=== PATIENT | male | born 1965 | race African-American/Black ===

== ENCOUNTER 2018-06-24 18:56 | Inpatient (IN) | payer SELFPAY ==
[~2018-06-24 18:56] MED LIST: Aminocaproic Acid 5 GM/20 ML VIAL ONE; Calcium Chloride 1 GM/10 ML Abboject SYRINGE ONE; Cardioplegic Soln 1,000 ML BAG ONE; Dextrose 50% Abboject 50 ML SYRINGE ONE; Heparin 30,000 units/30 ml VIAL ONE; Heparin 5,000 UNITS/ML VIAL ONE; Lidocaine 2% PF 100 mg/5 ml Syringe ONE; Magnesium 5 GM/10 ML VIAL ONE; Mannitol 12.5 GM/50 ML ONE; Nitroglycerin 50 MG/250 ML BOT ONE; Norepinephrine 4 MG/4 ML VIAL ONE; PHENYLEPHRINE-NS 100 MCG/ML 10 ML SYRINGE ONE; PROPOFOL 200 MG/20 ML VIAL ONE; Papaverine 60 MG/2 ML VIAL ONE; Potassium Chloride 60 MEQ/30 ML VIAL ONE; Protamine Sulfate 250 MG/25 ML VIAL ONE; Sodium Bicarb 50 MEQ/50 ML VIAL ONE; Succinylcholine Chloride 20 MG/ML 10 ml SYRINGE FS ONE; Thrombin 5000 UNITS/5 ML VIAL ONE; Vecuronium 10 MG VIAL ONE
[2018-06-24 19:33] LABS: INR-International Normal Ratio 1.1; PTT 37.2 SEC (22.9-36.1); Prothrombin Time 13.9 SEC (12.0-14.7)
[2018-06-24 19:49] LABS: Troponin I 12.715 ng/mL (< 0.028)
[2018-06-24] MEDS ORDERED: Lidocaine 1% (PF) 30 ML VIAL ONE (19:52)
[2018-06-24] MEDS ORDERED: Milrinone 10 MG/10 ML VIAL ONE (21:11)
[2018-06-24] MEDS ORDERED: Dexmedetomidine 200 MCG/2 ML VIAL ONE (21:13)
--- NOTE | 2018-06-24 21:14 | RAD ---
AP VIEW CHEST 06/24/18 HISTORY: Chest pain. AP view chest demonstrates EKG leads seen over the chest. Surgical screw is seen in the proximal aspe ct of the left humerus. No evidence of acute intrathoracic abnormality seen. No evidence of effusions, pneumonia or pneumotho rax seen. IMPRESSION: Unremarkable AP view chest. POS: [facility]
[2018-06-24] MEDS ORDERED: Heparin 10,000 UNITS/1 ML VIAL ONE (21:19)
[2018-06-24] MEDS ORDERED: Vecuronium 10 MG VIAL ONE ×2 (21:27→23:51)
[2018-06-24] MEDS ORDERED: Insulin Regular 300 UNITS/3 ML VIAL ONE (21:27)
[2018-06-24] MEDS ORDERED: Morphine 4 MG/ML VIAL ONE (21:32)
[2018-06-24] MEDS ORDERED: Midazolam HCl 5 mg/5 ml Vial ONE (21:39)
[2018-06-24] MEDS ORDERED: Phenylephrine HCL 10 MG/ML VIAL ONE (22:43)
[2018-06-24] MEDS ORDERED: PHENYLEPHRINE-NS 100 MCG/ML 10 ML SYRINGE ONE (22:44)
[2018-06-25] MEDS ORDERED: Midazolam HCl 5 mg/5 ml Vial ONE (00:36)
[2018-06-25] MEDS ORDERED: Fentanyl 100 MCG/2 ML VIAL SLOW IVP PRN (01:57)
[2018-06-25] MEDS ORDERED: Bisacodyl 10 MG SUPP PR PRN (01:57)
[2018-06-25] MEDS ORDERED: Guaifenesin DM 100-10/5 ML UDCUP PO PRN (01:57)
[2018-06-25] MEDS ORDERED: Hetastarch 6% 500 ML 500 ML IVPB PRN (01:57)
[2018-06-25] MEDS ORDERED: Bisacodyl 5 MG TAB PO PRN (01:57)
[2018-06-25] MEDS ORDERED: Magnesium 2 GM/NS 0.9% 100 ML 2 GM in Premix Bag 1 BAG IVPB SCH ×2 (01:57→09:00)
[2018-06-25] MEDS ORDERED: Mag-Al 1200 mg/1200 mg/30 ML UDCUP PO PRN (01:57)
[2018-06-25] MEDS ORDERED: HYDROcodone/Acetaminophen 5/325 mg Tablet PO PRN (01:57)
[2018-06-25] MEDS ORDERED: Promethazine HCl 25 MG/ML VIAL IM PRN (01:57)
[2018-06-25] MEDS ORDERED: hydrALAZINE 20 MG/ML VIAL SLOW IVP PRN (01:57)
[2018-06-25] MEDS ORDERED: Potassium Chloride 20 MEQ/100 ML PREMIX BAG IVPB PRN (01:57)
[2018-06-25] MEDS ORDERED: Norepinephrine 8 MG/0.9% NS 250 ML IVPB PRN (01:57)
[2018-06-25] MEDS ORDERED: Acetaminophen 325 MG TAB PO PRN (01:57)
[2018-06-25] MEDS ORDERED: Ondansetron PF 4 MG/2 ML Vial IVP PRN (01:57)
[2018-06-25] MEDS ORDERED: CEFAZOLIN/Water 2 GM/20 ML SYRINGE SLOW IVP SCH (01:57)
[2018-06-25] MEDS ORDERED: Post-Op Insulin Drip Protocol IVPB ONE (01:57)
[2018-06-25] MEDS ORDERED: Nitroglycerin 50 MG/250 ML BOT 250 ML IVPB PRN (01:57)
[2018-06-25] MEDS ORDERED: D5 1/2 NS w/20 mEq KCL 1,000 ML IV SCH (02:15)
[2018-06-25] MEDS ORDERED: Magnesium 2 GM/50 ML 2 GM in Premix Bag 1 BAG IVPB SCH (02:15)
[2018-06-25 02:25] LABS: ALV-art Gradient 246.025 (0-20); Actual Bicarbonate (HCO3a) 25.6 mEq/L (22-28); CO2 Tension 50.3 mmHg (35.0-45.0); Calcium, Ionized 1.11 mmol/L (1.12-1.30); Carboxyhemoglobin (COHb) 2.4 gm% (0.0-3.0); Hemoglobin (Hb) 12.7 g/dL (14.0-18.0); O2 Tension (PaO2) 118.9 mmHg (80.0-100.0); Potassium - ABG Lab 4.12 mmol/L (3.70-5.30); Puncture Site ALINE; pH, Arterial 7.32 (7.35-7.45)
[2018-06-25] MEDS ORDERED: Insulin Regular 300 UNITS/3 ML VIAL ONE (02:26)
[2018-06-25] MEDS ORDERED: Milrinone 20 MG in Sodium Chloride 0.9% 100 ML IVPB SCH (02:30)
[2018-06-25] MEDS ORDERED: Dextrose 50% Abboject 50 ML SYRINGE SLOW IVP PRN (02:32)
[2018-06-25] MEDS ORDERED: Dextrose 5% in Water 1,000 ML IV PRN (02:32)
[2018-06-25] MEDS: Fentanyl 100 MCG/2 ML VIAL SLOW IVP PRN ×3 (02:36→10:28)
[2018-06-25 02:39] LABS: #Basophils 0.1 thou/uL (0.0-0.2); #Eosinphils 0.1 thou/uL (0.0-0.7); #Lymphocytes 1.7 thou/uL (1.20-3.40); #Monocytes 1.9 thou/uL (0.11-0.59); #Neutrophils 15.6 thou/uL (1.40-6.50); %Basophils 0.3 % (0.0-1.0); %Eosinophils 0.8 % (0.0-10.0); %Lymphocytes 8.6 % (21.0-51.0); %Monocytes 9.8 % (0.0-10.0); %Neutrophils 80.5 % (42.0-75.0); Hemoglobin 12.3 g/dL (14.0-18.0); Mean Corpuscular HGB CONC 31.8 g/dL (32.0-36.0); Mean Corpuscular Hemoglobin 30.8 pg (27.0-31.0); Mean Platelet Volume 6.9 fL (7.4-10.4); Platelet Count 275 thou/uL (130-400); RBC Distribution Width 13.3 % (11.5-14.5); Red Blood Cell (RBC) Count 3.98 mill/uL (4.70-6.10); White Blood Cell (WBC) Count 19.3 thou/uL (4.8-10.8)
[2018-06-25 02:46] LABS: INR-International Normal Ratio 1.3; PTT 34.6 SEC (22.9-36.1); Prothrombin Time 16.1 SEC (12.0-14.7)
[2018-06-25] MEDS ORDERED: Nitroglycerin 0.4 MG TAB (25 Tab Bottle) SL PRN (02:50)
[2018-06-25 03:00] LABS: Anion Gap 9 mmol/L (10-20); BUN (Urea Nitrogen) 8 mg/dL (8.4-25.7); Calc. Creatinine Clearance 0 mL/min (70-130); Calcium 8.3 mg/dL (7.8-10.44); Carbon Dioxide 27 mmol/L (22-29); Chloride 106 mmol/L (98-107); Estimated GFR-MDRD Greater than 90; Glucose 150 mg/dL (70-105); Potassium 4.2 mmol/L (3.5-5.1); Sodium 138 mmol/L (136-145)
[2018-06-25] MEDS: CEFAZOLIN 2 GM/50 ML-DEXTROSE 2 GM in Premix Bag 1 BAG IVPB SCH ×3 (03:24→21:06)
--- NOTE | 2018-06-25 03:30 | HP ---
DATE OF ADMISSION: 06/24/2018 INDICATION FOR ADMISSION: A 53-year-old gentleman with an anterior myocardial infarction. HISTORY OF PRESENT ILLNESS: This very unfortunate 53-year-old gentleman who appears to be very healt hy and had no previous cardiac history, but does have a history of hypercholesterolemia, diabetes, to bacco abuse, and some family history of heart disease, has been having chest pain for about 3 days on and off, but it has never completely resolved. He presented today to the emergency room, continued to have some chest discomfort. He still continued to have pain 10/19. He was given I believe IV Love nox as well as morphine continues to have some pain. EKG shows evidence of anterior myocardial infar ction, which may be old. He also has T-wave inversions laterally. Unfortunately, his troponin I is 11.1 with an MB of 73. Here, the troponin I actually increased up to 12.7. At this time, he still c ontinues to have some chest discomfort. He has been advised to undergo cardiac catheterization. PAST MEDICAL AND SURGICAL HISTORY: Significant for left shoulder rotator cuff tear and then had repa ir. His other past medical history includes diabetes and hypercholesterolemia. SOCIAL HISTORY: He is . He has children who are alive and well. He smokes half pack a day a nd has done so for more than 40 years. He has occasional beer. He works at a grocery store. ALLERGIES: None. MEDICATIONS: He takes glipizide, Zocor, and Flexeril. REVIEW OF SYSTEMS: Twelve-point review of systems unremarkable, except for what was noted in the his tory of present illness. PHYSICAL EXAMINATION: GENERAL: Reveals well-developed, well-nourished gentleman. VITAL SIGNS: Blood pressure 140/86, heart rate is 68 and regular, respiratory rate is about 16. HEENT: Shows head to be normocephalic and atraumatic. Carotid pulses are present. There are no bru its. CHEST: Clear to auscultation without rales, rhonchi, or wheezing. CARDIOVASCULAR: Exam reveals a regular rate and rhythm at this time. There is a normal S1, S2. The re is no S3, S4. There were no significant murmurs, heaves, thrills, bruits, or rubs. ABDOMEN: Soft and nontender. Positive bowel sounds are present. EXTREMITIES: Showed no clubbing, cyanosis, or edema. Pedal pulses are present on the right foot. T he left foot is somewhat diminished, but otherwise unremarkable. There is no edema. NEUROLOGIC: The patient appears to be fully intact. He seems to have normal strength and tone. SKIN: Warm and dry at this time. With the chest discomfort earlier, he did complain of some shortne ss of breath, but no diaphoresis, nausea, or vomiting. He does not have an appetite, however, he has not eaten today. Also enzyme show a normal creatinine that with pertinent labs at this time, this w ith an abnormality would be the troponins and the abnormal EKG. IMPRESSION: 1. Anterior myocardial infarction, which may be ongoing and may have already occurred. We may still continue to have some vessels that may be compromised and he continues to have chest discomfort. We will undergo cardiac catheterization to rule out evidence of severe underlying coronary artery disea se and see whether or not he may become a candidate for reperfusion therapy by using angioplasty or s tent placement. I have explained the procedure and the risks to him to include bleeding, infection, possibly myocardial infarction, cerebrovascular accident, renal insufficiency, allergic contrast reac tion, and the possibility of . He understands and agrees to proceed. His other diagnoses inclu de diabetes, and hypercholesterolemia, these will be dealt with hopefully by the primary care service . We will defer his care over to them. 2. History of tobacco abuse. Hopefully, he will stop smoking. He will be strongly encouraged to do so as of today.
[2018-06-25 03:34] LABS: Base Excess (BEa) -0.9 mEq/L (-2.0 to +3.0); CO2 Tension 35.4 mmHg (35.0-45.0); Calcium, Ionized 1.08 mmol/L (1.12-1.30); Hemoglobin (Hb) 12.1 g/dL (14.0-18.0); O2 Tension (PaO2) 203.3 mmHg (80.0-100.0); Potassium - ABG Lab 4.27 mmol/L (3.70-5.30); pH, Arterial 7.43 (7.35-7.45)
[2018-06-25 03:37] LABS: Puncture Site ALINE
--- NOTE | 2018-06-25 03:39 | CON ---
DATE OF CONSULTATION: 06/24/2018 HISTORY OF PRESENT ILLNESS: Mr. Castro is a 53-year-old gentleman, who has had chest pain on and off for some time. It has become more severe over the last 3 days. He sought care in the [place] [facility] at approximately 3:00 this afternoon and was transferred here for further care. He has had a troponin of 11 there. His EKG showed Q-waves anteriorly and flipped T waves laterally. He has had chest pain on the airport maintenance laborer table this evening. He underwent emergency cardiac catheterization revealing an occluded LAD with a hypokinetic anterior wall. He has two circumflex branches, one of which is occluded with retrograde filling which is a good target, the second of which is severely stenosed. The right coronary artery is chronically occluded with retrograde filling to small PDA and PL branches. Ventriculogram shows an ejection fraction in the 20% range. Currently, the patient is awake, alert, having mild chest pain on the airport maintenance laborer table. I have been asked to see him to take him for emergency coronary artery bypass grafting. PAST MEDICAL HISTORY: 1. Dyslipidemia. 2. Diabetes mellitus. PAST SURGICAL HISTORY: Left rotator cuff repair. ALLERGIES: None. CURRENT MEDICATIONS: Medications have not been recorded yet in his chart, although he takes a statin and diabetes medication. SOCIAL HISTORY: He smokes 1 PPD cigarettes. 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 He is and probably speaks of his seven grandchildren. REVIEW OF SYSTEMS: Not performed due to the acuity of the situation. PHYSICAL EXAMINATION: GENERAL: This is a well-developed, well-nourished man, resting comfortably in the airport maintenance laborer with only mild chest pain at this point. VITAL SIGNS: Heart rate is 80, blood pressure is 130/72. HEENT: Sclerae nonicteric. NECK: Supple, with no adenopathy. There are no carotid bruits. CHEST: Clear bilaterally. HEART: Rhythm is regular. ABDOMEN: Soft and nontender, without mass. EXTREMITIES: No edema. VASCULAR: Palpable carotid, radial, femoral, dorsalis pedis pulses bilaterally. PSYCHIATRIC: The patient is awake, alert, and oriented to person, place, and time. ASSESSMENT AND PLAN: This is a 53-year-old gentleman with critical 3-vessel disease and severely depressed left ventricular function. We will take him for bypass this evening. Potential targets include an left anterior descending, obtuse marginal 1, obtuse marginal 2 and potentially a right-sided target depending on size criteria. This has been discussed with the patient's family and they are agreeable. MTDD
[2018-06-25] MEDS: Ketorolac Tromethamine 30 MG/ML VIAL IVP SCH ×4 (04:16→23:56)
[2018-06-25] MEDS: Insulin Regular 300 UNITS/3 ML VIAL SC PRN ×4 (05:49→21:06)
--- NOTE | 2018-06-25 05:55 | OP ---
DATE OF OPERATION: 06/25/2018 PREOPERATIVE DIAGNOSES: Coronary artery/hyperlipidemia/diabetes mellitus/tobacco abuse/unstable marian na with non-ST elevation myocardial infarction/depressed left ventricular ejection fraction. POSTOPERATIVE DIAGNOSES: Coronary artery/hyperlipidemia/diabetes mellitus/tobacco abuse/unstable ang dafne with non-ST elevation myocardial infarction/depressed left ventricular ejection fraction. PROCEDURE: Emergency coronary bypass grafting x3: 1) Left internal mammary artery to 1.25 mm dist al LAD -- good conduit and diffusely diseased small target. 2) Reverse saphenous vein to 1.0 mm OM -- small conduit and small target. 3) Reverse saphenous vein to 1.5 mm OM2 -- small conduit and goo d target. Note the conduit was adequate, but certainly not generous in size. His targets were not o f redo quality. There was no bypassable right-sided target. SURGEON: Marco Antonio Mckinney M.D. ANESTHESIA: General endotracheal -- Dr. Abdoulaye Hunt and Richard Abrams CRNA. PUMP TIME: 70 minutes. CROSS-CLAMP TIME: 40 minutes. LOW CORE TEMPERATURE: 34 degrees Celsius. VISUAL MERCHANDISING COORDINATOR: Pedro Robles. DRAINS: 24-Occitan chest tubes x2. DRIPS: Primacor and Levophed. TRANSFUSIONS: None. PROCEDURE IN DETAIL: After consent was obtained, the patient was brought to operating room and place d in the supine position on the operating room table. Appropriate anesthetic monitor was placed and general endotracheal anesthesia induced. Chest, abdomen, and legs were prepped and draped in usual s terile fashion. Greater saphenous vein was harvested from the left lower extremity utilizing an endo scopic technique from the groin down to the knee. Vein was small, but adequate for bypass. Vein was then prepared. Wound was closed in layers. Median sternotomy was performed. Left internal mammar y artery was harvested as a pedicle graft. The patient was systemically heparinized. Distal pedicle was divided and infused with the Papaverine. Thymic fat and pericardium divided with electrocauter y. Pericardial stay sutures were placed. Aortic and atrial cannulation was performed. After adequa te heparinization, the patient was placed on cardiopulmonary bypass. Distal targets were marked. Ao rtic cross-clamp was applied and antegrade sanguinous cardioplegic arrest obtained. One liter of ant egrade cold amount of cardioplegia was given. Topical cold solution was used. Reverse saphenous vei n was anastomosed to the OM2 in an end-to side fashion with a running 7-0 Prolene suture. Prior to c ompletion of anastomosis, 1.5 mm probe passed easily proximally and distally. Anastomosis was tested and was hemostatic. Reverse saphenous vein was anastomosed to the OM2 end-to-side fashion with runn ing 7-0 Prolene suture. Prior to completion, a 1 mm probe passed proximally and distally. Anastomos is was tested and was hemostatic. The right system was explored and there was no bypassable target. Mammary artery was brought through a window in the pericardium and anastomosed to the distal LAD in end-to-side fashion with running 7-0 Prolene suture. Prior to completion of the anastomoses a 1 mm p robe passed proximally and distally. On release of mammary clamps, good hooding anastomosis and good distal flow. Pedicle was secured with interrupted 6-0 Prolene suture. Cross-clamp was removed and partial occluding clamp placed. Saphenous vein to the OM2 was anastomosed to aortic root. Saphenous vein to the OM1 was anastomosed to side wall of the OM2 graft. Partial occluding clamp removed and grafts deaired. Anastomoses were inspected for hemostasis, which was good. The patient was warmed a nd weaned from cardiopulmonary bypass. After resumption of sinus rhythm, good hemodynamics, and temp erature greater than 36.5, bypass was discontinued. Transfusions were given. Protamine was administ ered. Decannulation was performed and pursestring sutures secured. Twenty-four Occitan chest tubes w ere placed in mediastinum x2. Sternum was treated with vancomycin paste. After adequate hemostasis had been established. Sternum was closed with #7 wire. Sternum was treated with platelet-rich plasm a and wires twisted. Wounds were irrigated, treated with platelet-poor plasma, and closed in multipl e layers. Needle, sponge, and instrument counts were all reported correct at the end of the procedur e. The patient was transported to the Intensive Care Unit in stable critical condition.
[2018-06-25 07:17] LABS: Actual Bicarbonate (HCO3a) 23.1 mEq/L (22-28); Base Excess (BEa) -0.9 mEq/L (-2.0 to +3.0); CO2 Tension 36.4 mmHg (35.0-45.0); Calcium, Ionized 1.12 mmol/L (1.12-1.30); Carboxyhemoglobin (COHb) 2.7 gm% (0.0-3.0); Hemoglobin (Hb) 13.5 g/dL (14.0-18.0); O2 Tension (PaO2) 133.6 mmHg (80.0-100.0); Potassium - ABG Lab 4.16 mmol/L (3.70-5.30); pH, Arterial 7.42 (7.35-7.45)
--- NOTE | 2018-06-25 07:51 | RAD ---
SUPINE FRONTAL CHEST RADIOGRAPH: DATE: 06/25/2018. COMPARISON: 06/24/2018. HISTORY: Open heart surgery. FINDINGS: Endotracheal tube terminates at the level of the clavicular heads. No midline sternotomy wires are p resent. Right-sided vascular catheter present, distal tip overlying the region of the right atrium. Postsurgical drainage catheter overlies the mediastinum. There is hazy increased density in the med ial left lung base suggesting partial consolidation/collapse of the left lower lobe. There is mild h azy density in the costophrenic angle on the right as well. IMPRESSION: Postoperative changes as detailed above. Lines and tubes. Increased density in the lung bases, left greater than right, suggesting volume loss. POS: [facility]
--- NOTE | 2018-06-25 08:11 | RAD ---
PORTABLE SUPINE FRONTAL CHEST RADIOGRAPH: Date: 06-25-18 Time: 3:59 a.m. Comparison: 06-25-18 at 2:00 a.m. History: Status post open heart surgery. FINDINGS: Stable endotracheal tube and mediastinal drainage catheter. Stable midline sternotomy wires and left sided vascular catheter. Stable nonspecific hazy increased density noted in the medial lung bases, le ft greater than right. Supine imaging limits assessment for pneumothorax and pleural fluid. IMPRESSION: No significant interval change. POS: [facility]
[2018-06-25] MEDS: Aspirin 325 MG TAB PO SCH (08:13)
--- NOTE | 2018-06-25 08:17 | CON ---
DATE OF CONSULTATION: 06/25/2018 REASON FOR CONSULTATION: Ventilator management. CONSULTING PHYSICIAN: Dr. Marco Antonio Mckinney HISTORY OF PRESENT ILLNESS: Mr. Castro is a 53-year-old male who underwent emergent coronary bypass grafting surgery last night for critical 3-vessel disease with left ventricular dysfunction. He is currently on mechanical ventilation postop. He has been weaned down to spontaneous ventilation with a pressure support of 5 and is doing well. He is able to follow commands for me without difficulty. PAST MEDICAL HISTORY: 1. No previous history of lung disease, but he is a smoker. 2. Hyperlipidemia. 3. Diabetes mellitus. PAST SURGICAL HISTORY: Left rotator cuff repair. ALLERGIES: None. MEDICATIONS PRIOR TO ADMISSION: Simvastatin 20 mg nightly, Flexeril 10 mg nightly, glipizide 5 mg ni ghtly. Inpatient medications were reviewed and the list is in the active medication section in the chart. SOCIAL HISTORY: Smokes. Does not consume alcohol. REVIEW OF SYSTEMS: Cannot be obtained as patient is currently on mechanical ventilation. PHYSICAL EXAMINATION: VITAL SIGNS: Temperature 98.4, pulse 109, blood pressure 102/57 by the art line. Intake since surge ry 363, output 845. HEENT: Pupils react. Sclerae icteric. Oropharynx clear. NECK: No JVD. LUNGS: Clear without wheezing. CARDIOVASCULAR: S1, S2 regular. ABDOMEN: Soft, nontender. EXTREMITIES: No edema. LABORATORY DATA: White blood cell count 19.3, hematocrit 38.6, platelet count 275. INR 1.3, PTT 34. 6, pH 7.42, pCO2 36, pO2 133. Sodium 138, potassium 4.2, chloride 106, CO2 27, BUN 8, creatinine 0.9 , glucose 150. Chest x-ray shows sternotomy wires. ET tube in good position, fairly clear lung rodriguez. ASSESSMENT: 1. Status post emergent coronary artery bypass graft. 2. Acute respiratory failure requiring mechanical ventilation - expected postop ventilator. PLAN: Meets criteria for extubation. We will proceed with extubation.
[2018-06-25 08:34] LABS: Potassium 4.3 mmol/L (3.5-5.1)
[2018-06-25] MEDS: Famotidine/PF 20 mg/2ml Vial SLOW IVP SCH ×2 (08:38→21:07)
[2018-06-25] MEDS: Magnesium 2 GM/50 ML 2 GM in Premix Bag 1 BAG IVPB SCH (08:44)
--- NOTE | 2018-06-25 11:59 | PDOC.PN ---
- Subjective Encounter Start Date: 06/25/18 Encounter Start Time: 11:00 -: old records requested/rev pt had chest pain, s/o angina and found with nstemi, had cath, found multivessel CAD, required CABG, was intubated after surgery, extubated this morning, sleepy now, family bedside. Patient seen and examined. consulted for medical management - Objective MAR Reviewed: Yes Vital Signs & Weight: Vital Signs (12 hours) Temp Pulse Resp BP Pulse Ox 06/25/18 10:06 99 06/25/18 07:45 110 H 22 H 99 06/25/18 07:21 100 06/25/18 06:47 99 97/56 L 06/25/18 06:45 101 H 28 H 100 06/25/18 06:15 22 H 06/25/18 05:00 98.2 F 06/25/18 04:51 100 06/25/18 04:00 14 06/25/18 03:39 97.5 F L 83 8 L 99 06/25/18 02:03 93 102/67 06/25/18 02:00 99 Weight Weight 199 lb 1.239 oz Most Recent Monitor Data Heart Rate from ECG 121 NIBP 87/61 NIBP BP-Mean 69 Respiration from ECG 18 SpO2 98 I&O: 06/24/18 06/25/18 06/26/18 06:59 06:59 06:59 Intake Total 2286.3 363 Output Total 975 205 Balance 1311.3 158 Result Diagrams: 06/25/18 07:50 06/25/18 07:50 Additional Labs: Accuchecks 06/25/18 06/25/18 06/25/18 11:44 05:07 02:22 POC Glucose 147 H 150 H 140 H 06/25/18 06/25/18 06/25/18 01:43 00:42 00:03 POC Glucose 167 H 305 H 145 H 06/24/18 06/24/18 23:20 22:14 POC Glucose 160 H 129 H Radiology Reviewed by me: Yes (chest xrary reviewed) EKG Reviewed by me: Yes (nsr, tachycardia) Phys Exam - Physical Examination Constitutional: NAD HEENT: PERRLA, moist MMs, sclera anicteric Neck: no JVD, supple Respiratory: no wheezing, no rales, no rhonchi chest tube in place Cardiovascular: RRR, no significant murmur, no rub surgical site with dressing Gastrointestinal: soft, non-tender, no distention, positive bowel sounds Musculoskeletal: no edema, pulses present Neurological: non-focal, normal sensation Lymphatic: no nodes Psychiatric: normal affect, A&O x 3 Skin: no rash, normal turgor Dx/Plan (1) Multiple vessel coronary artery disease Code(s): I25.10 - ATHSCL HEART DISEASE OF [place] CORONARY ARTERY W/O ANG PCTRS Status: Acute (2) NSTEMI (non-ST elevated myocardial infarction) Code(s): I21.4 - NON-ST ELEVATION (NSTEMI) MYOCARDIAL INFARCTION Status: Acute (3) S/P CABG x 3 Code(s): Z95.1 - PRESENCE OF AORTOCORONARY BYPASS GRAFT Status: Acute (4) Diabetes type 2, controlled Code(s): E11.9 - TYPE 2 DIABETES MELLITUS WITHOUT COMPLICATIONS Status: Chronic (5) Dyslipidemia Code(s): E78.5 - HYPERLIPIDEMIA, UNSPECIFIED Status: Chronic (6) Hypertension Code(s): I10 - ESSENTIAL (PRIMARY) HYPERTENSION Status: Chronic (7) Obesity (BMI 30.0-34.9) Code(s): E66.9 - OBESITY, UNSPECIFIED Status: Chronic (8) Tobacco abuse Code(s): Z72.0 - TOBACCO USE Status: Chronic - Plan cont current plan of care, plan discussed w/ family * medication reviewed as below * symptomatic treatment * currently pt is managed by CT surgeon after surgery as per protocol * will check lipid profile, HbA1c and TSH tomorrow * discussed with family bedside * will follow * code status -addressed and full code. Review of Systems - Review of Systems ENT: negative: Ear Pain, Ear Discharge, Nose Pain, Nose Discharge, Nose Congestion, Mouth Pain, Mouth Swelling, Throat Pain, Throat Swelling, Other Respiratory: negative: Cough, Dry, Shortness of Breath, Hemoptysis, SOB with Excertion, Pleuritic Pain, Sputum, Wheezing Cardiovascular: negative: chest pain, palpitations, orthopnea, paroxysmal nocturnal dyspnea, edema, light headedness, other Gastrointestinal: negative: Nausea, Vomiting, Abdominal Pain, Diarrhea, Constipation, Melena, Hematochezia, Other Genitourinary: negative: Dysuria, Frequency, Incontinence, Hematuria, Retention , Other Musculoskeletal: negative: Neck Pain, Shoulder Pain, Arm Pain, Back Pain, Hand Pain, Leg Pain, Foot Pain, Other Skin: negative: Rash, Lesions, Tomás, Bruising, Other - Medications/Allergies Allergies/Adverse Reactions: Allergies Allergy/AdvReac Type Severity Reaction Status Date / Time No Known Drug Allergies Allergy Verified 06/25/18 04:44 Medications: Current Medications Acetaminophen (Tylenol) 650 mg PO Q6H PRN PRN Reason: Headache/Fever Or Mild Pain Hydrocodone Bitart/Acetaminophen ([place] 5/325) 1 tab PO Q4H PRN PRN Reason: Moderate Pain (4-6) Hydrocodone Bitart/Acetaminophen ([place] 5/325) 2 tab PO Q4H PRN PRN Reason: Severe Pain (7-10) Al Hydroxide/Mg Hydroxide (Maalox) 30 ml PO Q4H PRN PRN Reason: Indigestion Albumin Human (Albumin 5%) 12.5 gm IVPB Q6H PRN PRN Reason: To Maintain SBP> 90 mmHG Stop: 06/26/18 01:58 Albumin Human (Albumin 5%) 25 gm IVPB Q6H PRN PRN Reason: To Maintain SBP > 90 mmHG Stop: 06/26/18 01:58 Last Admin: 06/25/18 02:35 Dose: 25 gm Albuterol/Ipratropium (Duoneb) 3 ml NEB [id number] [facility] Last Admin: 06/25/18 06:45 Dose: 3 ml Albuterol/Ipratropium (Duoneb) 3 ml NEB [id number] PRN PRN Reason: SHORTNESS OF BREATH Aspirin (Aspirin) 325 mg PO QA-[facility] Last Admin: 06/25/18 08:13 Dose: 325 mg Bisacodyl (Dulcolax) 10 mg PO Q12H PRN PRN Reason: Constipation Bisacodyl (Dulcolax) 10 mg NC Q12H PRN PRN Reason: Constipation Dextrose/Water (Dextrose 50%) 25 gm SLOW IVP PRN PRN PRN Reason: PER HYPOGLYCEMIC PROTOCOL Famotidine (Pepcid) 20 mg SLOW IVP Q12HR [facility] Last Admin: 06/25/18 08:38 Dose: 20 mg Fentanyl (Sublimaze) 25 mcg SLOW IVP Q2H PRN PRN Reason: Moderate Pain (4-6) Stop: 06/27/18 01:36 Last Admin: 06/25/18 04:17 Dose: 25 mcg Fentanyl (Sublimaze) 50 mcg SLOW IVP Q2H PRN PRN Reason: Severe Pain (7-10) Stop: 06/27/18 01:36 Last Admin: 06/25/18 10:28 Dose: 50 mcg Glucagon (Glucagon) 1 mg SC PRN PRN PRN Reason: PER HYPOGLYCEMIC PROTOCOL Guaifenesin/Dextromethorphan (Robitussin Dm) 15 ml PO Q4H PRN PRN Reason: Cough Hydralazine HCl (Apresoline) 10 mg SLOW IVP Q6H PRN PRN Reason: To Maintain SBP< 140mmHG Hetastarch/Sodium Chloride (Hespan) 500 mls @ 0 mls/hr IVPB PRN PRN PRN Reason: To Maintain SBP > 90mmHg Stop: 06/26/18 01:36 Norepinephrine Bitartrate (Levophed) 250 mls @ 0 mls/hr IVPB PRN PRN; Protocol PRN Reason: To maintain SBP > 90 mmHG Dextrose/Water (D5w) 1,000 mls @ 0 mls/hr IV INF PRN PRN Reason: PRN HYPOGLYCEMIC PROTOCOL Cefazolin Sodium/Dextrose 2 gm (/ Device) 50 mls @ 100 mls/hr IVPB 0500,1300, 2100 [facility] Stop: 06/25/18 21:29 Last Admin: 06/25/18 03:24 Dose: 50 mls Magnesium Sulfate 2 gm/ Device 50 mls @ 50 mls/hr IVPB QAM [facility] Stop: 06/26/18 09:59 Last Admin: 06/25/18 08:44 Dose: 50 mls Insulin Human Regular (Humulin R) 0 units SC Q4H PRN; Protocol PRN Reason: POST OP SLIDING SCALE Last Admin: 06/25/18 05:49 Dose: 3 unit Ketorolac Tromethamine (Toradol) 30 mg IVP Q6HR [facility] Stop: 06/28/18 06:01 Last Admin: 06/25/18 11:46 Dose: 30 mg Morphine Sulfate (Morphine) 2 mg SLOW IVP Q15MIN PRN PRN Reason: Severe Pain (7-10) Nitroglycerin (Nitrostat) 0.4 mg SL Q5MIN PRN PRN Reason: Chest Pain Ondansetron HCl (Zofran) 4 mg IVP Q6H PRN PRN Reason: Nausea/Vomiting Potassium Chloride (Kcl) 20 meq IVPB PRN PRN PRN Reason: K level </= 4.0 Promethazine HCl (Phenergan) 6.25 mg IM Q4H PRN PRN Reason: Nausea/Vomiting Sodium Chloride (Flush - Normal Saline) 10 ml IVF PRN PRN PRN Reason: Saline Flush Sodium Chloride (Normal Saline 0.9% 250 Ml Bag) 200 ml IVPB ONE PRN PRN Reason: BOLUS IF SBP <90 Stop: 06/26/18 02:51
[2018-06-25 12:29] LABS: Actual Bicarbonate (HCO3a) 22.9 mEq/L (22-28); Analyzer IN Cardio OR; Base Excess (BEa) -2.5 mEq/L (-2.0 to +3.0); Calcium, Ionized 0.98 mmol/L (1.12-1.30); Carboxyhemoglobin (COHb) 2.2 gm% (0.0-3.0); Hemoglobin (Hb) 10.6 g/dL (14.0-18.0); O2 Tension (PaO2) 276.3 mmHg (80.0-100.0); Potassium - ABG Lab 5.68 mmol/L (3.70-5.30); pH, Arterial 7.36 (7.35-7.45)
[2018-06-25 12:29] LABS: Actual Bicarbonate (HCO3a) 22.7 mEq/L (22-28); Analyzer IN Cardio OR; Base Excess (BEa) -1.3 mEq/L (-2.0 to +3.0); CO2 Tension 35.9 mmHg (35.0-45.0); Calcium, Ionized 1.11 mmol/L (1.12-1.30); Carboxyhemoglobin (COHb) 3.6 gm% (0.0-3.0); Hemoglobin (Hb) 13.8 g/dL (14.0-18.0); Potassium - ABG Lab 4.64 mmol/L (3.70-5.30); pH, Arterial 7.42 (7.35-7.45)
[2018-06-25 12:29] LABS: Actual Bicarbonate (HCO3a) 22.5 mEq/L (22-28); Analyzer IN Cardio OR; Base Excess (BEa) -2.4 mEq/L (-2.0 to +3.0); CO2 Tension 39.6 mmHg (35.0-45.0); Calcium, Ionized 1.09 mmol/L (1.12-1.30); Hemoglobin (Hb) 13.2 g/dL (14.0-18.0); Potassium - ABG Lab 5.01 mmol/L (3.70-5.30); pH, Arterial 7.37 (7.35-7.45)
[2018-06-25 12:30] LABS: Actual Bicarbonate (HCO3v) 24 mEq/L (22-28); Analyzer IN Cardio OR; Base Excess -2.2 mEq/L (-2.0 to +3.0); Calcium, Ionized 0.97 mmol/L (1.16-1.32); Chloride (ABG LAB) 104 mmol/L (98-106); Hemoglobin (Hb) 9.5 g/dL (13.1-17.2); Potassium - ABG Lab 5.64 mmol/L (3.70-5.30); pH (venous) 7.32 (7.32-7.43)
[2018-06-25 12:30] LABS: Actual Bicarbonate (HCO3a) 24.7 mEq/L (22-28); Analyzer IN Cardio OR; Base Excess (BEa) -3.1 mEq/L (-2.0 to +3.0); CO2 Tension 59.2 mmHg (35.0-45.0); Carboxyhemoglobin (COHb) 1.7 gm% (0.0-3.0); Hemoglobin (Hb) 9.8 g/dL (14.0-18.0); O2 Tension (PaO2) 440.3 mmHg (80.0-100.0); Potassium - ABG Lab 5.91 mmol/L (3.70-5.30)
[2018-06-25 12:31] LABS: Actual Bicarbonate (HCO3a) 29.3 mEq/L (22-28); Analyzer IN Cardio OR; Base Excess (BEa) 3.3 mEq/L (-2.0 to +3.0); CO2 Tension 52.2 mmHg (35.0-45.0); Calcium, Ionized 1.09 mmol/L (1.12-1.30); Carboxyhemoglobin (COHb) 1.7 gm% (0.0-3.0); Hemoglobin (Hb) 9.9 g/dL (14.0-18.0); O2 Tension (PaO2) 409.4 mmHg (80.0-100.0); Potassium - ABG Lab 5.49 mmol/L (3.70-5.30); pH, Arterial 7.37 (7.35-7.45)
[2018-06-25 12:31] LABS: Actual Bicarbonate (HCO3a) 25.5 mEq/L (22-28); Analyzer IN Cardio OR; Base Excess (BEa) -0.4 mEq/L (-2.0 to +3.0); CO2 Tension 46.8 mmHg (35.0-45.0); Calcium, Ionized 1.06 mmol/L (1.12-1.30); Carboxyhemoglobin (COHb) 1.5 gm% (0.0-3.0); Hemoglobin (Hb) 11.9 g/dL (14.0-18.0); Potassium - ABG Lab 4.09 mmol/L (3.70-5.30); pH, Arterial 7.35 (7.35-7.45)
[2018-06-25 12:32] LABS: Puncture Site ALINE
[2018-06-25 12:32] LABS: Puncture Site ALINE
[2018-06-25 12:35] LABS: Puncture Site ALINE; pH, Arterial 7.24 (7.35-7.45)
[2018-06-25 12:36] LABS: Puncture Site ALINE
[2018-06-25 12:37] LABS: O2 Tension (PaO2) 504.5 mmHg (80.0-100.0); Puncture Site ALINE
[2018-06-25 12:38] LABS: Puncture Site ALINE
[2018-06-25] MEDS: HYDROcodone/Acetaminophen 5/325 mg Tablet PO PRN ×3 (15:31→23:55)
[2018-06-26 04:17] LABS: #Basophils 0.1 thou/uL (0.0-0.2); #Eosinphils 0.2 thou/uL (0.0-0.7); #Lymphocytes 2.4 thou/uL (1.20-3.40); #Monocytes 1.7 thou/uL (0.11-0.59); #Neutrophils 7.9 thou/uL (1.40-6.50); %Basophils 0.6 % (0.0-1.0); %Eosinophils 1.3 % (0.0-10.0); %Lymphocytes 19.9 % (21.0-51.0); %Monocytes 14.1 % (0.0-10.0); Hemoglobin 10.5 g/dL (14.0-18.0); Mean Corpuscular HGB CONC 31.8 g/dL (32.0-36.0); Mean Corpuscular Volume 97.6 fL (78.0-98.0); Mean Platelet Volume 6.9 fL (7.4-10.4); Platelet Count 258 thou/uL (130-400); RBC Distribution Width 13.2 % (11.5-14.5); Red Blood Cell (RBC) Count 3.39 mill/uL (4.70-6.10); White Blood Cell (WBC) Count 12.3 thou/uL (4.8-10.8)
[2018-06-26 04:33] LABS: Anion Gap 7 mmol/L (10-20); BUN (Urea Nitrogen) 10 mg/dL (8.4-25.7); Calc. Creatinine Clearance 112 mL/min (70-130); Calcium 8.3 mg/dL (7.8-10.44); Carbon Dioxide 28 mmol/L (22-29); Cardiac Risk 3.9 (Less than 4.5); Chloride 104 mmol/L (98-107); Cholesterol 130 mg/dl (< 200 Desired); Estimated GFR-MDRD Greater than 90; Glucose 116 mg/dL (70-105); HDL Cholesterol 33 mg/dL (>60 Neg Risk); LDL Cholesterol, Calculated 84 mg/dL; Potassium 4.3 mmol/L (3.5-5.1); Sodium 135 mmol/L (136-145); Triglycerides 67 mg/dL (Less than 150)
[2018-06-26] MEDS: HYDROcodone/Acetaminophen 5/325 mg Tablet PO PRN ×3 (04:52→21:22)
[2018-06-26] MEDS: Insulin Regular 300 UNITS/3 ML VIAL SC PRN ×2 (06:14→11:45)
[2018-06-26] MEDS: Ketorolac Tromethamine 30 MG/ML VIAL IVP SCH ×3 (06:14→17:39)
[2018-06-26 06:33] VITALS: BMI 31.7
[2018-06-26] MEDS: Aspirin 325 MG TAB PO SCH (07:42)
--- NOTE | 2018-06-26 07:53 | PRG ---
DATE OF SERVICE: 06/26/2018 He was successfully extubated yesterday. He is doing okay now except for the continued need for Levo phed. PHYSICAL EXAMINATION: VITAL SIGNS: Temperature is 98.4, pulse 115, blood pressure 100/74. He is currently on Levophed at 8 mcg per minute. 24-hour intake was 2858, output 1400. HEENT: Unremarkable. NECK: No JVD. LUNGS: Clear. CARDIAC: S1 and S2 regular. ABDOMEN: Soft. EXTREMITIES: No edema. LABORATORY DATA: White blood cell count 12.3, hematocrit 33.1, platelet count 258. Sodium 135, pota ssium 4.3, BUN 10, creatinine 0.9, glucose 116. ASSESSMENT: 1. Postop hypotension - probably expected. 2. Status post coronary bypass grafting surgery. 3. Status post respiratory failure. PLAN: Wean Levophed as tolerated. Hopefully transfer to floor later today.
--- NOTE | 2018-06-26 08:12 | RAD ---
CHEST 1 VIEW: Date: 06/26/18 HISTORY: Heart surgery. Follow-up. COMPARISON: 06/25/18. FINDINGS: Cardiac silhouette is magnified and enlarged. Pulmonary vasculature is accentuated by shallow inspira tion. Mediastinum is midline with postoperative changes and a radiopaque drain. The endotracheal cath eter is no longer visible. Right subclavian central venous catheter remains in place. Parenchymal opa city at the right base is again demonstrated. It is accentuated by shallow inspiration. Findings appe ar to represent bibasilar atelectasis. No evidence of pneumothorax. IMPRESSION: 1. Interval extubation. 2. Otherwise stable postoperative appearance of the chest. POS: [facility]
--- NOTE | 2018-06-26 08:13 | PDOC.CTH ---
<Nkechi Veronica - Last Filed: 06/26/18 13:04> Cardiology Progress Note - Subjective The pt seen and examined. No overnight events. No cardiac complaints. He has been up to chair, but exercising with PT yet at this moment. He is on Levophed. - Objective Vital Signs Temp Pulse Resp Pulse Ox 06/26/18 08:00 98.3 F 06/26/18 06:55 94 L 06/26/18 06:53 110 H 17 94 L 06/26/18 04:00 98.4 F 06/26/18 00:31 113 H 24 H 94 L 06/26/18 00:00 98.6 F Weight 196 lb 13.965 oz 06/25/18 06/26/18 06/27/18 06:59 06:59 06:59 Intake Total 2286.3 2858 30 Output Total 975 1400 320 Balance 1311.3 1458 -290 - Physical Examination General/Neuro: alert & oriented x3 Neck: no JVD present Lungs: other: (diminished at bases) Heart: RRR Abdomen: soft Extremities: other: (No edema;) - Telemetry Telemetry Rhythm: ST 100-110s - Labs Result Diagrams: 06/26/18 04:05 06/26/18 04:05 Troponin/CKMB Troponin I 12.715 ng/mL (< 0.028) H* 06/24/18 19:13 - Assessment/Plan 1. CABG x3 with CROW-LAD, RSVG-OM1, and RSVG-OM2 in 06/25/18 - stable; on ASA and statin. Not on BBlocker or KEVIN/ARB due to hypotenstive; cont. to monitor on tele 2. Hypotesion - on Levophed; 3. Tachycardia - May start low dose of BBloker? 4. DM type 2 - managed by PCP 5. Hyperlipidemia - on Statin 6. Tobacco abuse - The pt stated he would like to stop smoking. Smoking cessation education given. MAR reviewed <addendum> Will start Coreg 3.125mg 1/2tab BID for tachycardia. Review of Systems - Review of Systems Constitutional: reports: weakness EENTM: reports: no symptoms reported Respiratory: reports: no symptoms reported Cardiac (ROS): reports: no symptoms reported ABD/GI: reports: no symptoms reported : reports: no symptoms reported Musculoskeletal: reports: no symptoms reported <Chichi Gallegos - Last Filed: 06/26/18 16:03> Cardiology Progress Note - Objective Vital Signs Temp Pulse Pulse Pulse Resp BP BP 06/26/18 14:00 120 H 117 H 134/89 123/85 06/26/18 12:20 120 H 23 H 06/26/18 12:00 98.4 F 06/26/18 10:15 118 H 117 H 108/67 138/87 06/26/18 08:30 06/26/18 08:00 98.3 F 06/26/18 06:55 06/26/18 06:53 110 H 17 Pulse Ox Pulse Ox Pulse Ox 06/26/18 14:00 98 100 06/26/18 12:20 100 06/26/18 12:00 06/26/18 10:15 99 99 06/26/18 08:30 99 06/26/18 08:00 06/26/18 06:55 94 L 06/26/18 06:53 94 L Weight 196 lb 13.965 oz 06/25/18 06/26/18 06/27/18 06:59 06:59 06:59 Intake Total 2286.3 2858 530 Output Total 975 1400 720 Balance 1311.3 1458 -190 - Labs Result Diagrams: 06/26/18 04:05 06/26/18 04:05 Troponin/CKMB Troponin I 12.715 ng/mL (< 0.028) H* 06/24/18 19:13 - Assessment/Plan Pt. seen and eval. by me. i agree with the A/P by the SERVICES COORDINATOR. Chest clear. RRR, mild sinus tachycardia. Continue present meds.
[2018-06-26] MEDS: Magnesium 2 GM/50 ML 2 GM in Premix Bag 1 BAG IVPB SCH (08:41)
[2018-06-26] MEDS: Famotidine/PF 20 mg/2ml Vial SLOW IVP SCH (08:41)
[2018-06-26] MEDS: Polyethylene Glycol 3350 17 GM Packet PO SCH (08:41)
--- NOTE | 2018-06-26 09:56 | PDOC.PN ---
- Subjective Encounter Start Date: 06/26/18 Encounter Start Time: 09:20 Patient seen and examined. No new complaints. No overnight events - Objective MAR Reviewed: Yes Vital Signs & Weight: Vital Signs (12 hours) Temp Pulse Resp Pulse Ox 06/26/18 08:00 98.3 F 06/26/18 06:55 94 L 06/26/18 06:53 110 H 17 94 L 06/26/18 04:00 98.4 F 06/26/18 00:31 113 H 24 H 94 L 06/26/18 00:00 98.6 F Weight Weight 196 lb 13.965 oz Most Recent Monitor Data Heart Rate from ECG 117 NIBP 108/66 NIBP BP-Mean 80 Respiration from ECG 19 SpO2 99 I&O: 06/25/18 06/26/18 06/27/18 06:59 06:59 06:59 Intake Total 2286.3 2858 180 Output Total 975 1400 470 Balance 1311.3 1458 -290 Result Diagrams: 06/26/18 04:05 06/26/18 04:05 Additional Labs: Accuchecks 06/26/18 06/25/18 06/25/18 06:09 21:04 15:35 POC Glucose 124 H 148 H 130 H 06/25/18 06/25/18 11:44 05:07 POC Glucose 147 H 150 H EKG Reviewed by me: Yes (sinus tachycardia) Phys Exam - Physical Examination Constitutional: NAD HEENT: PERRLA, moist MMs, sclera anicteric Neck: no JVD, supple Respiratory: no wheezing, no rales, no rhonchi surgical site with dressing Cardiovascular: RRR, no significant murmur, no rub tachycardia Gastrointestinal: soft, non-tender, no distention, positive bowel sounds Musculoskeletal: no edema, pulses present Neurological: non-focal, normal sensation, moves all 4 limbs Lymphatic: no nodes Psychiatric: normal affect, A&O x 3 Skin: no rash, normal turgor Dx/Plan (1) Multiple vessel coronary artery disease Code(s): I25.10 - ATHSCL HEART DISEASE OF [place] CORONARY ARTERY W/O ANG PCTRS Status: Acute (2) NSTEMI (non-ST elevated myocardial infarction) Code(s): I21.4 - NON-ST ELEVATION (NSTEMI) MYOCARDIAL INFARCTION Status: Acute (3) S/P CABG x 3 Code(s): Z95.1 - PRESENCE OF AORTOCORONARY BYPASS GRAFT Status: Acute (4) Diabetes type 2, controlled Code(s): E11.9 - TYPE 2 DIABETES MELLITUS WITHOUT COMPLICATIONS Status: Chronic (5) Dyslipidemia Code(s): E78.5 - HYPERLIPIDEMIA, UNSPECIFIED Status: Chronic (6) Hypertension Code(s): I10 - ESSENTIAL (PRIMARY) HYPERTENSION Status: Chronic (7) Obesity (BMI 30.0-34.9) Code(s): E66.9 - OBESITY, UNSPECIFIED Status: Chronic (8) Tobacco abuse Code(s): Z72.0 - TOBACCO USE Status: Chronic - Plan cont current plan of care * chest tube dced * wean levophed off * start lipitor today * transfer to tele as per CT surgeon * medication reviewed as below * symptomatic treatment * continue cardiac rehab. Review of Systems - Review of Systems ENT: negative: Ear Pain, Ear Discharge, Nose Pain, Nose Discharge, Nose Congestion, Mouth Pain, Mouth Swelling, Throat Pain, Throat Swelling, Other Respiratory: negative: Cough, Dry, Shortness of Breath, Hemoptysis, SOB with Excertion, Pleuritic Pain, Sputum, Wheezing Cardiovascular: negative: chest pain, palpitations, orthopnea, paroxysmal nocturnal dyspnea, edema, light headedness, other Gastrointestinal: negative: Nausea, Vomiting, Abdominal Pain, Diarrhea, Constipation, Melena, Hematochezia, Other Genitourinary: negative: Dysuria, Frequency, Incontinence, Hematuria, Retention , Other Musculoskeletal: negative: Neck Pain, Shoulder Pain, Arm Pain, Back Pain, Hand Pain, Leg Pain, Foot Pain, Other Skin: negative: Rash, Lesions, Tomás, Bruising, Other - Medications/Allergies Allergies/Adverse Reactions: Allergies Allergy/AdvReac Type Severity Reaction Status Date / Time No Known Drug Allergies Allergy Verified 06/25/18 04:44 Medications: Current Medications Acetaminophen (Tylenol) 650 mg PO Q6H PRN PRN Reason: Headache/Fever Or Mild Pain Hydrocodone Bitart/Acetaminophen (White 5/325) 1 tab PO Q4H PRN PRN Reason: Moderate Pain (4-6) Hydrocodone Bitart/Acetaminophen (White 5/325) 2 tab PO Q4H PRN PRN Reason: Severe Pain (7-10) Last Admin: 06/26/18 04:52 Dose: 2 tab Al Hydroxide/Mg Hydroxide (Maalox) 30 ml PO Q4H PRN PRN Reason: Indigestion Albuterol/Ipratropium (Duoneb) 3 ml NEB [id number] [facility] Last Admin: 06/26/18 06:53 Dose: 3 ml Albuterol/Ipratropium (Duoneb) 3 ml NEB [id number] PRN PRN Reason: SHORTNESS OF BREATH Aspirin (Aspirin) 325 mg PO QAM-[facility] Last Admin: 06/26/18 07:42 Dose: 325 mg Atorvastatin Calcium (Lipitor) 40 mg PO HS TANIKA Bisacodyl (Dulcolax) 10 mg PO Q12H PRN PRN Reason: Constipation Bisacodyl (Dulcolax) 10 mg [place] Q12H PRN PRN Reason: Constipation Dextrose/Water (Dextrose 50%) 25 gm SLOW IVP PRN PRN PRN Reason: PER HYPOGLYCEMIC PROTOCOL Famotidine (Pepcid) 20 mg SLOW IVP Q12HR [facility] Last Admin: 06/26/18 08:41 Dose: 20 mg Fentanyl (Sublimaze) 25 mcg SLOW IVP Q2H PRN PRN Reason: Moderate Pain (4-6) Stop: 06/27/18 01:36 Last Admin: 06/25/18 04:17 Dose: 25 mcg Fentanyl (Sublimaze) 50 mcg SLOW IVP Q2H PRN PRN Reason: Severe Pain (7-10) Stop: 06/27/18 01:36 Last Admin: 06/25/18 10:28 Dose: 50 mcg Glucagon (Glucagon) 1 mg SC PRN PRN PRN Reason: PER HYPOGLYCEMIC PROTOCOL Guaifenesin/Dextromethorphan (Robitussin Dm) 15 ml PO Q4H PRN PRN Reason: Cough Hydralazine HCl (Apresoline) 10 mg SLOW IVP Q6H PRN PRN Reason: To Maintain SBP< 140mmHG Norepinephrine Bitartrate (Levophed) 250 mls @ 0 mls/hr IVPB PRN PRN; Protocol PRN Reason: To maintain SBP > 90 mmHG Last Admin: 06/26/18 04:17 Dose: 250 mls Dextrose/Water (D5w) 1,000 mls @ 0 mls/hr IV INF PRN PRN Reason: PRN HYPOGLYCEMIC PROTOCOL Magnesium Sulfate 2 gm/ Device 50 mls @ 50 mls/hr IVPB QAM [facility] Stop: 06/26/18 09:59 Last Admin: 06/26/18 08:41 Dose: 50 mls Insulin Human Regular (Humulin R) 0 units SC Q4H PRN; Protocol PRN Reason: POST OP SLIDING SCALE Last Admin: 06/26/18 06:14 Dose: 2 unit Ketorolac Tromethamine (Toradol) 30 mg IVP Q6HR [facility] Stop: 06/28/18 06:01 Last Admin: 06/26/18 06:14 Dose: 30 mg Morphine Sulfate (Morphine) 2 mg SLOW IVP Q15MIN PRN PRN Reason: Severe Pain (7-10) Nitroglycerin (Nitrostat) 0.4 mg SL Q5MIN PRN PRN Reason: Chest Pain Ondansetron HCl (Zofran) 4 mg IVP Q6H PRN PRN Reason: Nausea/Vomiting Polyethylene Glycol (Miralax) 17 gm PO DAILY [facility] Last Admin: 06/26/18 08:41 Dose: 17 gm Potassium Chloride (Kcl) 20 meq IVPB PRN PRN PRN Reason: K level </= 4.0 Promethazine HCl (Phenergan) 6.25 mg IM Q4H PRN PRN Reason: Nausea/Vomiting Sodium Chloride (Flush - Normal Saline) 10 ml IVF PRN PRN PRN Reason: Saline Flush
[2018-06-26] MEDS ORDERED: Carvedilol 3.125 MG TAB PO SCH (13:30)
[2018-06-26] MEDS ORDERED: Mag-Al 1200 mg/1200 mg/30 ML UDCUP PO PRN (17:07)
[2018-06-26] MEDS ORDERED: Bisacodyl 5 MG TAB PO PRN (17:07)
[2018-06-26] MEDS ORDERED: Bisacodyl 10 MG SUPP PR PRN (17:07)
[2018-06-26] MEDS ORDERED: Guaifenesin DM 100-10/5 ML UDCUP PO PRN (17:07)
[2018-06-26] MEDS ORDERED: Zolpidem Tartrate 5 MG TAB PO PRN (17:07)
[2018-06-26] MEDS ORDERED: Ondansetron PF 4 MG/2 ML Vial IVP PRN (17:07)
[2018-06-26] MEDS ORDERED: Nitroglycerin 0.4 MG TAB (25 Tab Bottle) SL PRN (17:07)
[2018-06-26] MEDS ORDERED: Mineral Oil ENEMA PR PRN (17:07)
[2018-06-26] MEDS ORDERED: HYDROcodone/Acetaminophen 5/325 mg Tablet PO PRN (17:07)
[2018-06-26] MEDS ORDERED: Fentanyl 100 MCG/2 ML VIAL SLOW IVP PRN ×2 (17:07)
[2018-06-26] MEDS ORDERED: Dextrose 50% Abboject 50 ML SYRINGE SLOW IVP PRN (17:31)
[2018-06-26] MEDS ORDERED: Insulin Regular 300 UNITS/3 ML VIAL SC PRN (17:31)
[2018-06-26] MEDS ORDERED: Dextrose 5% in Water 1,000 ML IV PRN (17:31)
[2018-06-26] MEDS: Carvedilol 3.125 MG TAB PO SCH (17:40)
[2018-06-26] MEDS ORDERED: Atorvastatin Calcium 40 MG TAB PO SCH (21:00)
[2018-06-26] MEDS: Famotidine 20 MG TAB PO SCH (21:22)
[2018-06-26] MEDS: Atorvastatin Calcium 20 MG TAB PO SCH (21:22)
[2018-06-27] MEDS: Ketorolac Tromethamine 30 MG/ML VIAL IVP SCH ×5 (01:25→17:53)
[2018-06-27 05:30] LABS: #Basophils 0.1 thou/uL (0.0-0.2); #Eosinphils 0.3 thou/uL (0.0-0.7); #Lymphocytes 2.7 thou/uL (1.20-3.40); #Monocytes 1.7 thou/uL (0.11-0.59); #Neutrophils 8.2 thou/uL (1.40-6.50); %Basophils 0.5 % (0.0-1.0); %Eosinophils 2.4 % (0.0-10.0); %Lymphocytes 20.7 % (21.0-51.0); %Monocytes 13.1 % (0.0-10.0); %Neutrophils 63.3 % (42.0-75.0); Hemoglobin 10.7 g/dL (14.0-18.0); Mean Corpuscular HGB CONC 32.2 g/dL (32.0-36.0); Mean Corpuscular Hemoglobin 31.6 pg (27.0-31.0); Mean Corpuscular Volume 98.2 fL (78.0-98.0); Mean Platelet Volume 7.2 fL (7.4-10.4); Platelet Count 280 thou/uL (130-400); Red Blood Cell (RBC) Count 3.37 mill/uL (4.70-6.10); White Blood Cell (WBC) Count 12.9 thou/uL (4.8-10.8)
[2018-06-27 05:32] LABS: Anion Gap 12 mmol/L (10-20); BUN (Urea Nitrogen) 10 mg/dL (8.4-25.7); Calc. Creatinine Clearance 106 mL/min (70-130); Calcium 8.7 mg/dL (7.8-10.44); Carbon Dioxide 24 mmol/L (22-29); Chloride 102 mmol/L (98-107); Estimated GFR-MDRD Greater than 90; Glucose 97 mg/dL (70-105); Potassium 4.5 mmol/L (3.5-5.1); Sodium 133 mmol/L (136-145)
[2018-06-27] MEDS ORDERED: Sodium Chloride 0.9% 10 ML ONE ×3 (07:30→17:52)
[2018-06-27] MEDS: HYDROcodone/Acetaminophen 5/325 mg Tablet PO PRN (07:54)
[2018-06-27] MEDS: Famotidine 20 MG TAB PO SCH ×2 (07:58→20:28)
[2018-06-27] MEDS: Potassium Chloride 10 MEQ TAB PO SCH (07:58)
[2018-06-27] MEDS: Furosemide 40 MG TAB PO SCH (07:58)
[2018-06-27] MEDS: Aspirin 325 mg Enteric Coated Tablet PO SCH (07:58)
[2018-06-27] MEDS: Carvedilol 3.125 MG TAB PO SCH ×3 (07:58→20:29)
[2018-06-27] MEDS: Polyethylene Glycol 3350 17 GM Packet PO SCH (08:02)
--- NOTE | 2018-06-27 10:41 | PDOC.PN ---
- Subjective Encounter Start Date: 06/27/18 Encounter Start Time: 07:45 Patient seen and examined. No new complaints. No overnight events - Objective MAR Reviewed: Yes Vital Signs & Weight: Vital Signs (12 hours) Temp Pulse Resp BP Pulse Ox 06/27/18 07:42 99.6 F 117 H 18 126/73 96 06/27/18 07:15 96 06/27/18 03:09 99.7 F H 115 H 15 128/61 95 Weight Weight 196 lb 14.4 oz Most Recent Monitor Data Heart Rate from ECG 109 NIBP 137/99 NIBP BP-Mean 111 Respiration from ECG 25 SpO2 99 I&O: 06/26/18 06/27/18 06/28/18 06:59 06:59 06:59 Intake Total 2858 1193 Output Total 1400 720 Balance 1458 473 Result Diagrams: 06/27/18 04:35 06/27/18 04:35 Additional Labs: Accuchecks 06/27/18 06/26/18 06/26/18 06:01 21:26 16:17 POC Glucose 97 107 113 H 06/26/18 11:00 POC Glucose 191 H EKG Reviewed by me: Yes (sinus tachycardia) Phys Exam - Physical Examination Constitutional: NAD HEENT: PERRLA, moist MMs, sclera anicteric Neck: no JVD, supple Respiratory: no wheezing, no rales, no rhonchi Cardiovascular: RRR, no significant murmur, no rub surgical site clean tachycardia Gastrointestinal: soft, non-tender, no distention, positive bowel sounds Musculoskeletal: no edema, pulses present Neurological: non-focal, normal sensation, moves all 4 limbs Psychiatric: normal affect, A&O x 3 Skin: no rash, normal turgor Dx/Plan (1) NSTEMI (non-ST elevated myocardial infarction) Code(s): I21.4 - NON-ST ELEVATION (NSTEMI) MYOCARDIAL INFARCTION Status: Acute (2) Multiple vessel coronary artery disease Code(s): I25.10 - ATHSCL HEART DISEASE OF [place] CORONARY ARTERY W/O ANG PCTRS Status: Acute (3) S/P CABG x 3 Code(s): Z95.1 - PRESENCE OF AORTOCORONARY BYPASS GRAFT Status: Acute (4) Diabetes type 2, controlled Code(s): E11.9 - TYPE 2 DIABETES MELLITUS WITHOUT COMPLICATIONS Status: Chronic (5) Dyslipidemia Code(s): E78.5 - HYPERLIPIDEMIA, UNSPECIFIED Status: Chronic (6) Hypertension Code(s): I10 - ESSENTIAL (PRIMARY) HYPERTENSION Status: Chronic (7) Obesity (BMI 30.0-34.9) Code(s): E66.9 - OBESITY, UNSPECIFIED Status: Chronic (8) Tobacco abuse Code(s): Z72.0 - TOBACCO USE Status: Chronic - Plan cont current plan of care, plan discussed w/ family * continue cardiac rehab * coreg started * monitor on tele * pt is recovering well after surgery, he is asymptomatic * medication reviewed as below * symptomatic treatment. Review of Systems - Review of Systems ENT: negative: Ear Pain, Ear Discharge, Nose Pain, Nose Discharge, Nose Congestion, Mouth Pain, Mouth Swelling, Throat Pain, Throat Swelling, Other Respiratory: negative: Cough, Dry, Shortness of Breath, Hemoptysis, SOB with Excertion, Pleuritic Pain, Sputum, Wheezing Cardiovascular: negative: chest pain, palpitations, orthopnea, paroxysmal nocturnal dyspnea, edema, light headedness, other Gastrointestinal: negative: Nausea, Vomiting, Abdominal Pain, Diarrhea, Constipation, Melena, Hematochezia, Other Genitourinary: negative: Dysuria, Frequency, Incontinence, Hematuria, Retention , Other Musculoskeletal: negative: Neck Pain, Shoulder Pain, Arm Pain, Back Pain, Hand Pain, Leg Pain, Foot Pain, Other Skin: negative: Rash, Lesions, Tomás, Bruising, Other - Medications/Allergies Allergies/Adverse Reactions: Allergies Allergy/AdvReac Type Severity Reaction Status Date / Time No Known Drug Allergies Allergy Verified 06/25/18 04:44 Medications: Current Medications Hydrocodone Bitart/Acetaminophen ([place] 5/325) 1 tab PO Q4H PRN PRN Reason: Moderate Pain (4-6) Hydrocodone Bitart/Acetaminophen ([place] 5/325) 2 tab PO Q4H PRN PRN Reason: Severe Pain (7-10) Last Admin: 06/27/18 07:54 Dose: 2 tab Al Hydroxide/Mg Hydroxide (Maalox) 30 ml PO Q4H PRN PRN Reason: Indigestion Albuterol/Ipratropium (Duoneb) 3 ml NEB [id number] PRN PRN Reason: Respiratory Distress Aspirin (Ecotrin) 325 mg PO DAILY [facility] Last Admin: 06/27/18 07:58 Dose: 325 mg Atorvastatin Calcium (Lipitor) 20 mg PO HS [facility] Last Admin: 06/26/18 21:22 Dose: 20 mg Bisacodyl (Dulcolax) 10 mg PO Q12H PRN PRN Reason: Constipation Bisacodyl (Dulcolax) 10 mg [place] Q12H PRN PRN Reason: Constipation Carvedilol (Coreg) 3.125 mg PO BID-[facility] Last Admin: 06/27/18 07:58 Dose: 3.125 mg Dextrose/Water (Dextrose 50%) 25 gm SLOW IVP PRN PRN PRN Reason: PER HYPOGLYCEMIC PROTOCOL Famotidine (Pepcid) 20 mg PO BID [facility] Last Admin: 06/27/18 07:58 Dose: 20 mg Fentanyl (Sublimaze) 25 mcg SLOW IVP Q2H PRN PRN Reason: Moderate breakthrough pain Fentanyl (Sublimaze) 50 mcg SLOW IVP Q2H PRN PRN Reason: Severe breakthrough pain Furosemide (Lasix) 40 mg PO DAILY [facility] Last Admin: 06/27/18 07:58 Dose: 40 mg Glipizide (Glucotrol) 5 mg PO QPM-[facility] Glucagon (Glucagon) 1 mg SC PRN PRN PRN Reason: PER HYPOGLYCEMIC PROTOCOL Guaifenesin/Dextromethorphan (Robitussin Dm) 15 ml PO Q4H PRN PRN Reason: Cough Dextrose/Water (D5w) 1,000 mls @ 0 mls/hr IV INF PRN PRN Reason: PRN HYPOGLYCEMIC PROTOCOL Insulin Human Regular (Humulin R) 0 units SC Q4H PRN; Protocol PRN Reason: POST OP SLIDING SCALE Ketorolac Tromethamine (Toradol) 15 mg IVP Q6HR [facility] Stop: 06/28/18 06:00 Last Admin: 06/27/18 06:31 Dose: 15 mg Mineral Oil (Fleet Mineral Oil) 133 ml [place] DAILYPRN PRN PRN Reason: Constipation Nitroglycerin (Nitrostat) 0.4 mg SL Q5MIN PRN PRN Reason: Chest Pain Ondansetron HCl (Zofran) 4 mg IVP Q6H PRN PRN Reason: Nausea/Vomiting Polyethylene Glycol (Miralax) 17 gm PO DAILY [facility] Last Admin: 06/27/18 08:02 Dose: Not Given Potassium Chloride (Klor-Con 10) 10 meq PO QAM-WM [facility] Last Admin: 06/27/18 07:58 Dose: 10 meq Zolpidem Tartrate (Ambien) 5 mg PO HSPRN PRN PRN Reason: Insomnia
--- NOTE | 2018-06-27 11:24 | PDOC.CTH ---
<Nkechi Veronica - Last Filed: 06/27/18 11:24> Cardiology Progress Note - Subjective The pt seen and examined. No overnight events. No cardiac complaints. He has walked around the floor several times this AM without any cardiac complaints. - Objective Vital Signs Temp Pulse Resp BP Pulse Ox 06/27/18 07:42 99.6 F 117 H 18 126/73 96 06/27/18 07:15 96 06/27/18 03:09 99.7 F H 115 H 15 128/61 95 Weight 196 lb 14.4 oz 06/26/18 06/27/18 06/28/18 06:59 06:59 06:59 Intake Total 2858 1193 Output Total 1400 720 Balance 1458 473 - Physical Examination General/Neuro: alert & oriented x3 Neck: no JVD present Lungs: CTA Heart: RRR Abdomen: soft Extremities: other: (1+ pitting BLE edema) - Telemetry Telemetry Rhythm: ST 110s - Labs Result Diagrams: 06/27/18 04:35 06/27/18 04:35 Troponin/CKMB Troponin I 12.715 ng/mL (< 0.028) H* 06/24/18 19:13 - Assessment/Plan 1. CABG x3 with CROW-LAD, RSVG-OM1, and RSVG-OM2 in 06/25/18 - stable; on ASA and statin. Not on BBlocker or KEVIN/ARB due to hypotenstive; cont. to monitor on tele 2. Hypotesion - stable; will increase Coreg 3.125mg from BID to TID from today. Cont. to monitor 3. Tachycardia - Will increase Coreg 3.125mg from BID to TID from today. Cont. to monitor on tele. 4. DM type 2 - managed by PCP 5. Hyperlipidemia - on Statin 6. Tobacco abuse - The pt stated he would like to stop smoking. Smoking cessation education given. MAR reviewed Review of Systems - Review of Systems Constitutional: reports: no symptoms reported EENTM: reports: no symptoms reported Respiratory: reports: no symptoms reported Cardiac (ROS): reports: no symptoms reported ABD/GI: reports: no symptoms reported : reports: no symptoms reported Musculoskeletal: reports: no symptoms reported <Chichi Gallegos - Last Filed: 06/27/18 13:24> Cardiology Progress Note - Objective Vital Signs Temp Pulse Resp BP Pulse Ox 06/27/18 12:00 96.3 F L 101 H 18 122/82 06/27/18 07:42 99.6 F 117 H 18 126/73 96 06/27/18 07:15 96 06/27/18 03:09 99.7 F H 115 H 15 128/61 95 Weight 196 lb 14.4 oz 06/26/18 06/27/18 06/28/18 06:59 06:59 06:59 Intake Total 2858 1193 Output Total 1400 720 Balance 1458 473 - Labs Result Diagrams: 06/27/18 04:35 06/27/18 04:35 Troponin/CKMB Troponin I 12.715 ng/mL (< 0.028) H* 06/24/18 19:13 - Assessment/Plan Pt. seen and eval. by me. No complaints. Doing very well s/p CABG for severe CAD , CMY with decrease EF. I agree with the A/P by the INSULATION CUPOLA OPERATOR. I will repeat the echo prior to d/c. If the EF < 30-35% then he will need a LIFE -VEST on d/c.
[2018-06-27] MEDS: glipiZIDE 5 MG TAB PO SCH (17:13)
[2018-06-27] MEDS: Atorvastatin Calcium 20 MG TAB PO SCH (20:29)
[2018-06-28] MEDS: Ketorolac Tromethamine 30 MG/ML VIAL IVP SCH ×2 (00:50→05:43)
[2018-06-28] MEDS: Famotidine 20 MG TAB PO SCH (08:34)
[2018-06-28] MEDS: Aspirin 325 mg Enteric Coated Tablet PO SCH (08:34)
[2018-06-28] MEDS: Carvedilol 3.125 MG TAB PO SCH ×2 (08:34→16:55)
[2018-06-28] MEDS: Potassium Chloride 10 MEQ TAB PO SCH (08:34)
[2018-06-28] MEDS: Furosemide 40 MG TAB PO SCH (08:34)
[2018-06-28] MEDS: Polyethylene Glycol 3350 17 GM Packet PO SCH (08:35)
--- NOTE | 2018-06-28 10:27 | EKG ---
Test Reason : SP Blood Pressure : / mmHG Vent. Rate : 092 BPM Atrial Rate : 092 BPM P-R Int : 178 ms QRS Dur : 092 ms QT Int : 428 ms P-R-T Axes : 056 079 256 degrees QTc Int : 529 ms Normal sinus rhythm Prolonged QT Abnormal ECG When compared with ECG of 11-JUN-2006 15:21, ST now depressed in Lateral leads T wave inversion more evident in Inferior leads T wave inversion now evident in Lateral leads QT has lengthened Confirmed by DR. Db KING ([id number]) on 06/28/2018 10:27:23 AM Referred By: LATRELL Confirmed By:DR. Db KING
--- NOTE | 2018-06-28 11:12 | PDOC.PN ---
- Subjective Encounter Start Date: 06/28/18 Encounter Start Time: 11:10 Mr. Castro was seen today in follow-up of NSTEMI. He denies having any chest pain, he denies shortness of breath. - Objective MAR Reviewed: Yes Vital Signs & Weight: Vital Signs (12 hours) Temp Pulse Resp BP BP Pulse Ox 06/28/18 08:00 98 F 108 H 18 136/76 97 06/28/18 04:46 98.8 F 100 18 115/68 96 06/28/18 03:52 95 Weight Weight 193 lb 9.6 oz Most Recent Monitor Data Heart Rate from ECG 109 NIBP 137/99 NIBP BP-Mean 111 Respiration from ECG 25 SpO2 99 I&O: 06/27/18 06/28/18 06/29/18 06:59 06:59 06:59 Intake Total 1193 1100 Output Total 720 1125 Balance 473 -25 Result Diagrams: 06/27/18 04:35 06/27/18 04:35 Additional Labs: Accuchecks 06/27/18 06/27/18 06/27/18 20:36 16:58 14:14 POC Glucose 86 96 150 H 06/27/18 13:20 POC Glucose 171 H Phys Exam - Physical Examination HEENT: PERRLA Respiratory: no wheezing, no rales, no rhonchi, clear to auscultation bilateral Cardiovascular: RRR, no significant murmur, no rub Gastrointestinal: soft, non-tender, no distention, positive bowel sounds Musculoskeletal: no edema Dx/Plan (1) NSTEMI (non-ST elevated myocardial infarction) Code(s): I21.4 - NON-ST ELEVATION (NSTEMI) MYOCARDIAL INFARCTION Status: Acute (2) S/P CABG x 3 Code(s): Z95.1 - PRESENCE OF AORTOCORONARY BYPASS GRAFT Status: Acute (3) Diabetes type 2, controlled Code(s): E11.9 - TYPE 2 DIABETES MELLITUS WITHOUT COMPLICATIONS Status: Chronic (4) Hypertension Code(s): I10 - ESSENTIAL (PRIMARY) HYPERTENSION Status: Chronic (5) Tobacco abuse Code(s): Z72.0 - TOBACCO USE Status: Chronic - Plan * Anterior NSTEMI- he is s/p 3 vessel bypass surgery- he is clinically stable, and has been cleared for discharge.
[2018-06-28 12:45] VITALS: TEMP 98.4
--- NOTE | 2018-06-28 12:45 | PDOC.CTH ---
Cardiology Progress Note - Objective Vital Signs Temp Pulse Resp BP BP Pulse Ox 06/28/18 08:00 98 F 108 H 18 136/76 97 06/28/18 04:46 98.8 F 100 18 115/68 96 06/28/18 03:52 95 Weight 193 lb 9.6 oz 06/27/18 06/28/18 06/29/18 06:59 06:59 06:59 Intake Total 1193 1100 Output Total 720 1125 Balance 473 -25 - Labs Result Diagrams: 06/27/18 04:35 06/27/18 04:35 Troponin/CKMB Troponin I 12.715 ng/mL (< 0.028) H* 06/24/18 19:13 - Assessment/Plan 1. CABG x3 with CROW-LAD, RSVG-OM1, and RSVG-OM2 in 06/25/18 - stable; on ASA and statin. Tolerating BBlocker and KEVIN/ARB . 2. Hypotesion - stable; will increase Coreg 3.125mg from BID to TID from today. Cont. to monitor 3. Tachycardia - Will increase Coreg 3.125mg from BID to TID from today. Cont. to monitor on tele. 4. DM type 2 - managed by PCP 5. Hyperlipidemia - on Statin 6. Tobacco abuse - The pt stated he would like to stop smoking. Smoking cessation education given. 7.CMY.Repeat echo indicates the EF haja 25-30%.A Life -Vest is indicated.Apply today if possible and d/c to home.F/U with me in 2weeks. MAR reviewed
[2018-06-28] MEDS: HYDROcodone/Acetaminophen 5/325 mg Tablet PO PRN ×2 (12:50→16:54)
--- NOTE | 2018-06-28 16:53 | DIS ---
DATE OF ADMISSION: 06/24/2018 DATE OF DISCHARGE: 06/28/2018 HOSPITAL COURSE: The patient was admitted through the emergency room after being transferred from an outside ER for an acute ST elevation [place] with severe depression of left ventricular systolic function . He underwent emergency coronary bypass grafting to the LAD, OM1 and OM2 and it was felt that he wa s not a redo bypass graft candidate due to poor quality vessels. He did have a history of hyperlipid emia and diabetes mellitus for which he was taking his medications. His postoperative course was not able for a mild resting tachycardia, but blood pressure was satisfactory. Discharge weight was 195 c ompared to about 200 stated preadmission weight. Incisions were healing nicely. He will be discharg ed home on Coreg 6.25 mg half tablet 3 times a day as well as lisinopril 2.5 a day, aspirin 1 a day a nd Line [place] 5/325 for pain. He will resume his statin and glipizide that he was taking preadmission. D ischarge and follow up instructions have been given.
[2018-06-28 16:54] VITALS: BP 126/70
[2018-06-28] MEDS: glipiZIDE 5 MG TAB PO SCH (16:56)
--- NOTE | 2018-06-28 19:50 | DIS ---
DATE OF ADMISSION: 06/24/2018 DATE OF DISCHARGE: 06/28/2018 PRIMARY CARE PHYSICIAN: . DISCHARGE DISPOSITION: Home. PRIMARY DISCHARGE DIAGNOSES: 1. Non-ST segment elevated myocardial infarction in the anterior location. 2. Diabetes mellitus type 2. 3. Hypertension. 4. Tobacco abuse. 5. Dyslipidemia. 6. Acute systolic heart failure. DISCHARGE MEDICATIONS: Lisinopril 2.5 mg daily, [place] 5/325 two tablets q.4 hours as needed, carvedi lol 3.125 mg 3 times a day, aspirin 325 mg daily, Zocor 20 mg q.p.m., glipizide 5 mg at bedtime, and Flexeril 10 mg at bedtime. CODE STATUS: FULL code. ALLERGIES: No known drug allergies. HOSPITAL COURSE: Mr. Castro is a pleasant 53-year-old gentleman that presented to the emergency [facility] complaining of chest pain. He was evaluated in the emergency room and found to have an elevated tr oponin, which peaked at 12.715. He was taken emergently to [facility], where it was found that he had triple-vessel coronary artery disease with an ejection fraction of 20%-25%. He underwent emergent by pass surgery by Dr. Mckinney. He had an uneventful postoperative course and was subsequently able to be discharged home on 06/28/2018. He was counseled on smoking cessation during his time in [facility] and given written information for this, as well as the importance of diet and exercise. He will fo llow up with Dr. Mckinney in approximately 2 weeks and also with in approximately 1 week.
== END 2018-06-28 17:01 | disposition home or self-care (01) | DRG 233 ==
LOC: ERS 18:56 → SDC/OP 20:13 → CCU 21:13 → 2NO 06-26 18:08
PROVIDERS: ADMIT Internal Medicine Cardiovascular Disease; ATTEND Internal Medicine Cardiovascular Disease
PROC: 4A023N7 Measurement of Cardiac Sampling and Pressure, Left Heart, Percutaneous Approach (ICD-10-PCS; 2018-06-24)
PROC: B2111ZZ Fluoroscopy of Multiple Coronary Arteries using Low Osmolar Contrast (ICD-10-PCS; 2018-06-24)
PROC: B2151ZZ Fluoroscopy of Left Heart using Low Osmolar Contrast (ICD-10-PCS; 2018-06-24)
PROC: 02100Z9 Bypass Coronary Artery, One Artery from Left Internal Mammary, Open Approach (ICD-10-PCS; principal; 2018-06-25)
PROC: 021109W Bypass Coronary Artery, Two Arteries from Aorta with Autologous Venous Tissue, Open Approach (ICD-10-PCS; 2018-06-25)
PROC: 06BQ4ZZ Excision of Left Saphenous Vein, Percutaneous Endoscopic Approach (ICD-10-PCS; 2018-06-25)
PROC: 5A1221Z Performance of Cardiac Output, Continuous (ICD-10-PCS; 2018-06-25)
DX: I21.4 Non-ST elevation (NSTEMI) myocardial infarction (principal); J96.00 Acute respiratory failure, unspecified whether with hypoxia or hypercapnia; I50.21 Acute systolic (congestive) heart failure; I25.110 Atherosclerotic heart disease of native coronary artery with unstable angina pectoris; E11.9 Type 2 diabetes mellitus without complications; F17.210 Nicotine dependence, cigarettes, uncomplicated; E66.9 Obesity, unspecified; Z68.31 Body mass index [BMI] 31.0-31.9, adult; E78.5 Hyperlipidemia, unspecified; I95.81 Postprocedural hypotension; Z82.49 Family history of ischemic heart disease and other diseases of the circulatory system
CPT/HCPCS: 36415; 36416; 71045; 80048; 80061; 82805; 82947; 83036; 83880; 84443; 85025; 85610; 85730; 86850; 86900; 86901; 93005; 93010; 93306; 93458; 93798; 94002; 94150; 94640; 99406; C1769; J1642; J1644; J1815; J1885; J2001; J2150; J2250; J2260; J2270; J2370; J2440; J2550; J2704; J2720; J3010; J3370; J3475; J3480; J7050; J7620; P9045; S0017; S0028